=== PATIENT | male | born 1965 | race American Indian/Alaskan Native ===

== ENCOUNTER 2016-06-24 23:00 | Emergency (ER) | payer OTHER ==
[2016-06-25 00:10] VITALS: BP 138/86
[2016-06-25 00:33] LABS: Basophils % (Auto) 0.7 % (0.0-1.8); Eosinophils % (Auto) 2.5 % (0.0-4.3); Hematocrit 41.4 % (35.5-45.6); Hemoglobin 13.5 gm/dl (11.8-15.2); Mean Corpuscular HGB Conc 33 % (32-34); Mean Corpuscular Hemoglobin 26 pg (28-32); Mean Corpuscular Volume 80 fl (84-94); Platelet Count 357 K/mm3 (140-440); Red Blood Count 5.19 M/mm3 (3.65-5.03); Red Cell Distribution Width 14.4 % (13.2-15.2); White Blood Count 10.6 K/mm3 (4.5-11.0)
[2016-06-25 00:53] LABS: Anion Gap 20 mmol/L; BUN/Creatinine Ratio 15.71; Blood Urea Nitrogen 11 mg/dL (9-20); Calcium 8.7 mg/dL (8.4-10.2); Carbon Dioxide 24 mmol/L (22-30); Chloride 98.1 mmol/L (98-107); Glucose 112 mg/dL (75-100); Potassium 3.9 mmol/L (3.6-5.0); Sodium 138 mmol/L (137-145)
[2016-06-25 03:27] LABS: INR 1.12 (0.87-1.13)
--- NOTE | 2016-06-25 09:13 | XRay Report ---
AP CHEST: HISTORY: chest pain AP view of the chest demonstrates a normal mediastinal and cardiac contour with clear lungs and normal bony and soft tissue structures. IMPRESSION: Unremarkable AP chest.
--- NOTE | 2016-06-28 18:40 | ED Elopement Review ---
ED Pt Elopement review - Results review Lab results: Laboratory Tests 06/25/16 06/25/16 06/25/16 00:19 00:20 02:38 WBC 10.6 RBC 5.19 H Hgb 13.5 Hct 41.4 MCV 80 L MCH 26 L MCHC 33 RDW 14.4 Plt Count 357 Lymph % (Auto) 15.0 [place] % (Auto) 10.2 H Eos % (Auto) 2.5 Baso % (Auto) 0.7 Lymph # 1.6 [place] # 1.1 H Eos # 0.3 Baso # 0.1 Seg Neutrophils % 71.6 H Seg Neutrophils # 7.6 PT INR Sodium 138 Potassium 3.9 Chloride 98.1 Carbon Dioxide 24 Anion Gap 20 BUN 11 Creatinine 0.7 L Estimated GFR > 60 BUN/Creatinine Ratio 15.71 Glucose 112 H Calcium 8.7 Troponin T < 0.010 < 0.010 06/25/16 02:38 WBC RBC Hgb Hct MCV MCH MCHC RDW Plt Count Lymph % (Auto) [place] % (Auto) Eos % (Auto) Baso % (Auto) Lymph # [place] # Eos # Baso # Seg Neutrophils % Seg Neutrophils # PT 14.3 INR 1.12 Sodium Potassium Chloride Carbon Dioxide Anion Gap BUN Creatinine Estimated GFR BUN/Creatinine Ratio Glucose Calcium Troponin T - Call Back decision Pt Call Back Decision: Call pt to return to ED [facility] (chest pain may require further evaluation)
== END 2016-06-25 06:15 | disposition left against medical advice (07) ==
LOC: ED 23:00
DX: R07.9 Chest pain, unspecified (principal); M54.9 Dorsalgia, unspecified; M79.606 Pain in leg, unspecified; Z53.21 Procedure and treatment not carried out due to patient leaving prior to being seen by health care provider
CPT/HCPCS: 36415; 71010; 80048; 84484; 85025; 85610; 93005; 93010